=== PATIENT | female | born 1965 | race Two or more races ===

== ENCOUNTER 2017-03-10 09:39 | Emergency (ER) | payer OTHER ==
[~2017-03-10] VITALS: Ht 157.5 cm; Wt 47.2 kg
--- NOTE | 2017-03-10 09:50 | NUR ---
SHARATH AND HEATHER FROM HOME FOR SI ATTEMPT: TOOK VALIUM, SEROQUEL, AND TRAZADONE. NAD NOTED. PT AAO X3, VSS. DR LAW AT BEDSIDE FOR EVAL.
[2017-03-10] MEDS ORDERED: DIAZ2TAB PO (09:55)
[2017-03-10] MEDS ORDERED: QUET25TA PO (09:55)
[2017-03-10] MEDS ORDERED: TRAZ-144 PO (09:55)
[2017-03-10 10:10] LABS: BASOPHILS # (AUTO) 0.1 /CMM (0.0-0.2); BASOPHILS % (AUTO) 1.1 % (0.0-2.0); EOSINOPHILS # (AUTO) 0.3 /CMM (0.0-0.7); EOSINOPHILS % (AUTO) 7.1 % (0.0-6.0); HEMATOCRIT 38 % (33-45); HEMOGLOBIN 12.4 g/dL (11.5-14.8); LYMPHOCYTES # (AUTO) 0.7 /CMM (0.8-4.8); LYMPHOCYTES % (AUTO) 14.9 % (20.0-44.0); MEAN CORPUSCULAR HEMOGLOBIN 28 PG (26.0-33.0); MEAN CORPUSCULAR HGB CONC 33 g/dl (31.0-36.0); MEAN CORPUSCULAR VOLUME 87 fL (82-100); MONOCYTES # (AUTO) 0.2 /CMM (0.1-1.30); MONOCYTES % (AUTO) 3.5 % (2.0-12.0); NEUTROPHILS # (AUTO) 3.3 /CMM (1.8-8.9); NEUTROPHILS % (AUTO) 73.4 % (43.0-81.0); PLATELET COUNT (AUTO) 253 /CMM (150-450); RDW COEFFICIENT OF VARIATION 13.5 (11.5-15.0); RED BLOOD CELL COUNT(AUTO) 4.39 MIL/uL (4.0-5.2); WHITE BLOOD COUNT (AUTO) 4.6 K/uL (4.3-11.0)
[2017-03-10 10:27] LABS: CALCIUM, SERUM 8.1 mg/dL (8.5-10.1); CARBON DIOXIDE 21 mmol/L (21-32); CHLORIDE 100 mmol/L (98-107); CREATININE 1.1 mg/dL (0.6-1.3); GFR 53 mL/min (>60); GLUCOSE 216 mg/dL (74-106); POTASSIUM 3.7 mmol/L (3.5-5.1); SODIUM SERUM 136 mmol/L (136-145)
[2017-03-10 10:28] LABS: ALANINE AMINOTRANSFERASE 12 U/L (12-78); ALBUMIN 3.3 g/dL (3.4-5.0); ALKALINE PHOSPHATASE 51 U/L (46-116); ASPARTATE AMINOTRANSFERASE 17 U/L (15-37); BILIRUBIN,DIRECT 0.2 mg/dL (0.0-0.2); BILIRUBIN,TOTAL 1.3 mg/dL (0.2-1.0); SALICYLATE 0.4 mg/dL (2.8-20.0); TOTAL PROTEIN, SERUM 6.9 g/dL (6.4-8.2)
[2017-03-10 10:32] LABS: ACETAMINOPHEN 0 ug/ml (10-30); ALCOHOL, BLOOD < 3 mg/dL (0-0)
[2017-03-10 10:44] LABS: UREA NITROGEN, BLOOD 20 mg/dL (7-18)
--- NOTE | 2017-03-10 11:11 | NUR ---
URINE OBTAINED CALLED LAB FOR PICKUP
[2017-03-10 11:19] LABS: APPEARANCE,URINE Cloudy (CLEAR); BILIRUBIN,URINE Negative (NEGATIVE); BLOOD, URINE Small Ery/uL (NEGATIVE); COLOR,URINE Yellow (YELLOW); KETONES,URINE 80 (NEGATIVE); LEUKOCYTE ESTERASE ,URINE Small (NEGATIVE); NITRITE, URINE Positive (NEGATIVE); PH,URINE 5.5 (5.0-8.0); PROTEIN,URINE 30 mg/dl (NEGATIVE); UGLUCOSE Negative (NEGATIVE); UROBILINOGEN,URINE 0.2 EU/dL (0.2)
--- NOTE | 2017-03-10 11:25 | NUR ---
RECEIVED A CALL FROM SASKIA AT [facility] HE NOTIFIED ME PATIENT CANNOT BE ACCEPTED AT THIS TIME DUE TO POSSIBLE OD, THEY WILL IN FACT ACCEPT PATIENT FOLLOWING A 24HOUR OBSERVATION
[2017-03-10 11:35] LABS: ADD URINE CULTURE YES; BACTERIA,URINE 1+ /HPF (None Seen); SQUAMOUS EPITHELIAL CELL,UR Few /HPF (None Seen)
[2017-03-10 11:43] LABS: PHENCYCLIDINE SCREEN,URINE NEGATIVE (NEGATIVE)
[2017-03-10 11:46] LABS: CANNABINOID, URINE POSITIVE (NEGATIVE)
[2017-03-10] MEDS ORDERED: NITROFURANTOIN/NITROFURAN MAC 100 MG CAPSULE ONE (11:55)
[2017-03-10] MEDS ORDERED: NITROFURANTOIN/NITROFURAN MAC 100 MG CAPSULE PO ONE (12:00)
--- NOTE | 2017-03-10 12:10 | NUR ---
PATIENT ACCEPTED BY DR GLEZ AT [facility], WILL GO TO [facility]. RN TO RN REPORT [phone].
--- NOTE | 2017-03-10 12:16 | NUR ---
CALLED [facility] FOR TRANSPORTATION GOING TO [facility]. SPOKE WITH CHAIM PICKETT 45MIN- 1HOUR
--- NOTE | 2017-03-10 12:27 | NUR ---
REPORT GIVEN TO MAURICIO POWERS FOR JUNE
[2017-03-10 13:23] VITALS: BP 98/63
--- NOTE | 2017-03-10 13:26 | NUR ---
PT LEAVING VIA AMBULANCE. PT VERBALIZED UNDERSTANDING OF DC INSTRUCTIONS. NAD NOTED. VSS. REPORT GIVEN TO EMT, PT LEAVING VIA AMBULANCE IN STABLE CONDITION.
--- NOTE | 2017-03-10 13:26 | NUR ---
[facility] AT BEDSIDE FOR TRANSPORTATION.
== END 2017-03-10 13:25 ==
LOC: ER 09:42
DX: T65.91XA Toxic effect of unspecified substance, accidental (unintentional), initial encounter (principal); R45.851 Suicidal ideations; F10.20 Alcohol dependence, uncomplicated; R82.99 Other abnormal findings in urine; F17.200 Nicotine dependence, unspecified, uncomplicated; Y92.89 Other specified places as the place of occurrence of the external cause
CPT/HCPCS: 36415; 80048-TC; 80076-TC; 80305; 81000-TC; 84703-TC; 85025-TC; 87086-TC; A4606; G0480; G6039-TC; Z7610